=== PATIENT | female | born 1995 | race Two or more races ===

== ENCOUNTER 2020-03-26 17:57 | Emergency (ER) | payer MEDICAID, OTHER ==
[~2020-03-26] VITALS: Ht 157.5 cm; Wt 51.7 kg
[2020-03-26 19:01] LABS: ANION GAP 11 mmol/L (5-15); BLOOD UREA NITROGEN 9 mg/dL (7-18); CARBON DIOXIDE 27 MMOL/L (21-32); CHLORIDE 100 MMOL/L (98-107); CREATININE 0.6 MG/DL (0.55-1.30); POTASSIUM 3.9 MMOL/L (3.5-5.1); SODIUM 137 MMOL/L (136-145)
[2020-03-26 19:03] LABS: APPEARANCE,URINE CLEAR; BILIRUBIN, URINE NEGATIVE (NEGATIVE); COLOR,URINE YELLOW; GLUCOSE, URINE (UA) NEGATIVE (NEGATIVE); KETONES,URINE 3+ (NEGATIVE); LEUKOCYTE ESTERASE ,URINE 2+ (NEGATIVE); NITRITE,URINE NEGATIVE (NEGATIVE); PH,URINE 6.5 (4.5-8.0); PROTEIN,URINE NEGATIVE (NEGATIVE); UROBILINOGEN,URINE NORMAL MG/DL (0.0-1.0)
[2020-03-26 19:08] LABS: BASOPHILS % (AUTO) 0.7 % (0.0-2.0); EOSINOPHILS % (AUTO) 0.4 % (0.0-3.0); HEMATOCRIT 39.5 % (37.0-47.0); HEMOGLOBIN 13.3 G/DL (12.0-16.0); LYMPHOCYTES % (AUTO) 22.6 % (20.0-45.0); MEAN CORPUSCULAR VOLUME 92 FL (80-99); MONOCYTES % (AUTO) 9.7 % (1.0-10.0); NEUTROPHILS % (AUTO) 66.6 % (45.0-75.0); PLATELET COUNT 446 K/UL (150-450); RED CELL DISTRIBUTION WIDTH 11.6 % (11.6-14.8); WHITE BLOOD COUNT 11.5 K/UL (4.8-10.8)
[2020-03-26 19:13] LABS: ALANINE AMINOTRANSFERASE 29 U/L (12-78); ALBUMIN 4.8 G/DL (3.4-5.0); ALBUMIN/GLOBULIN RATIO 1.5 (1.0-2.7); ALKALINE PHOSPHATASE 48 U/L (46-116); ASPARTATE AMINO TRANSFERASE 31 U/L (15-37); BILIRUBIN,TOTAL 1.1 MG/DL (0.2-1.0)
[2020-03-26 19:16] LABS: BILIRUBIN,DIRECT 0.1 MG/DL (0.0-0.3)
--- NOTE | 2020-03-26 19:17 | Diagnostic Imaging Report ---
EXAM: US First Trimester , Transabdominal and Transvaginal CLINICAL HISTORY: PAIN TECHNIQUE: Real-time transabdominal and transvaginal obstetrical ultrasound of the maternal pelvis and a first trimester with image documentation. Transvaginal imaging was used for better evaluation of the fetus and adnexa. COMPARISON: No previous studies. FINDINGS: Gestation: Single early intrauterine gestational sac is noted corresponding to a gestational age of 6 weeks 1 day. No pole or yolk sac is detected at this early stage. Placenta/amniotic fluid: Cannot be adequately evaluated due to the early gestational age. Uterus/cervix: The cervix is closed. No myometrial mass. Ovaries: Flow to both ovaries is noted. The right ovary measures are 3.3 x 2 x 2.7 cm per Left ovary measures 2.8 x 1.3 x 2.3 centers. Flow of the ovaries is noted. Free fluid: No free fluid. IMPRESSION: 1. Single very early intrauterine gestation is noted corresponding to gestational age of 6 weeks 1 day. 2. No pole or yolk sac at this early stage. 3. Cervix is closed. 4. Flow to both ovaries noted. 5. Clinical correlation, correlation with laboratory values, and reimaging in 1 week are advised for further reassessment.
--- NOTE | 2020-03-26 19:21 | Diagnostic Imaging Report ---
EXAM: US Pelvis Transabdominal and Transvaginal, Complete and US Duplex Arterial/Venous of the Pelvis, Complete CLINICAL HISTORY: PAIN TECHNIQUE: Real-time complete transabdominal and transvaginal pelvic ultrasound with image documentation. Transvaginal imaging was used for better evaluation of the endometrium and adnexa. Real-time duplex ultrasound scan of the arterial and venous flow of the pelvis with color Doppler flow and spectral waveform analysis. COMPARISON: No previous study. FINDINGS: Uterus/cervix: The uterus measures 8.1 x 4.1 x 5.8 cm. Cervix is closed. Endometrial stripe measures approximately 1.9 cm in thickness. No myometrial mass. Right ovary: Right ovary measures 3.3 x 2 x 2.7 cm. Flow to both ovaries noted. No torsion. Left ovary: Left ovary measures 2.8 x 1.2 x 2.3 cm. Free fluid: No free fluid. Bladder: Unremarkable as visualized. Wall is normal thickness for degree of distention. Other findings: Single early intrauterine gestation is notochord spine to a gestational age of 6 weeks 1 day. No pole or yolk sac. IMPRESSION: 1. Single early intrauterine gestation is noted corresponding to a gestational age of 6 weeks 1 day. 2. No pole or yolk sac is detected. 3. Cervix is closed. 4. Clinical correlation, correlation with laboratory values, and reimaging in 1 week are advised for follow-up.
--- NOTE | 2020-03-26 19:30 | Emergency Room Report ---
History of Present Illness General Chief Complaint: Complications Source: Patient Present Illness HPI 24-year-old female who is G1, P0 and 6 weeks here complaining vaginal bleeding and now spotting with suprapubic pain. Denies diffuse abdominal pain, syncope, nausea vomiting diarrhea. Denies any heavy lifting or fall. Reports that she last saw her [employer] week ago. Has not yet had an ultrasound. Has been taking vitamins. Reports that she first started having diffuse amount of blood however it changed to spotting today. Has not taken medication for symptom relief. Denies any alcohol intake, tobacco smoke or drug use. Denies r ecent sexual discharge. Denies urinary frequency and urgency or dysuria. Allergies: Coded Allergies: No Known Allergies (Unverified , 03/26/20) COVID-19 Screening Contact w/high risk pt: No Experienced COVID-19 symptoms?: No COVID-19 Testing performed [employer]OM [employer] APPRENTICE: No Patient History Past Medical History: see triage record Past Surgical History: none Pertinent Family History: none Last Menstrual Period: February 12, 2020 Now: Yes : 1 Para: 0 Immunizations: UTD Reviewed Nursing Documentation: PMH: Agreed; PSxH: Agreed Nursing Documentation-PMH Past Medical History: No Stated History Review of Systems All Other Systems: negative except mentioned in HPI Physical Exam Vital Signs Date Time Temp Pulse Resp B/P (MAP) Pulse Ox O2 Delivery O2 Flow Rate FiO2 03/26/20 18:02 98.8 109 24 121/70 (87) 95 Sp02 EP Interpretation: reviewed, normal General Appearance: no apparent distress, alert, GCS 15, non-toxic Head: normocephalic, atraumatic Eyes: bilateral eye normal inspection, bilateral eye PERRL ENT: hearing grossly normal, normal pharynx, no angioedema, normal voice Neck: full range of motion, supple/symm/no masses Respiratory: chest non-tender, lungs clear, normal breath sounds, speaking full sentences Cardiovascular #1: regular rate, rhythm, no edema Gastrointestinal: normal bowel sounds, non tender, soft, non-distended, no guarding, no rebound Rectal: deferred Genitourinary: no CVA tenderness Musculoskeletal: back normal, no calf tenderness Neurologic: alert, motor strength/tone normal, oriented x3, sensory intact, responsive, speech normal Psychiatric: judgement/insight normal, memory normal, mood/affect normal, no suicidal/homicidal ideation Skin: no rash Lymphatic: no adenopathy Medical Decision Making PA Attestation ALL Diagnosis and treatment plan reviewed and discussed with my supervising physician Dr. Mcadams Diagnostic Impression: Primary Impression: Vaginal bleeding during Additional Impression: UTI (urinary tract infection) during ER Course 24-year-old female who is G1, P0 and 6 weeks here complaining vaginal bleeding and now spotting with suprapubic pain. Denies diffuse abdominal pain, syncope, nausea vomiting diarrhea. Denies any heavy lifting or fall. Reports that she last saw her [employer] week ago. Has not yet had an ultrasound. Has been taking vitamins. Reports that she first started having diffuse amount of blood however it changed to spotting today. Has not taken medication for symptom relief. Denies any alcohol intake, tobacco smoke or drug use. Denies recent sexual discharge. Denies urinary frequency and urgency or dysuria. Ddx considered but are not limited to: Ectopic , spontaneous , threatened , abdominal pain during , vaginal bleeding during , UTI during Vital signs: are WNL, pt. is afebrile H&PE are most consistent with: Vaginal bleeding during , UTI during ORDERS: CBC, CMP quantitative, OB ultrasound Keflex Upon discharge patient mentions to me that she was recently diagnosed with chlamydia however she did not want to tell anybody else until she realized that she should tell the provider that she recently received a treatment for chlamydia and is thinking that maybe the UTI secondary to that. Patient received 2 tabs of azithromycin 3 days ago and denies any vaginal discharge at this time. Patient also has her significant other on the phone and they were recommended that she should follow-up with [employer] in 24 to 48 hours. ED INTERVENTIONS: none DISCHARGE: At this time pt. is stable for d/c to home. Will provide printed patient care instructions, and any necessary prescriptions. Care plan and follow up instructions have been discussed with the patient prior to discharge. Patient take medication as directed, follow primary care provider, need to be seen by [employer] in 24 to 48 hours, if worsening symptoms return to the emergency room CT/MRI/US Diagnostic Results CT/MRI/US Diagnostic Results : Imaging Test Ordered: OB US Impression FINDINGS: Gestation: Single early intrauterine gestational sac is noted corresponding to a gestational age of 6 weeks 1 day. No pole or yolk sac is detected at this early stage. Placenta/amniotic fluid: Cannot be adequately evaluated due to the early gestational age. Uterus/cervix: The cervix is closed. No myometrial mass. Ovaries: Flow to both ovaries is noted. The right ovary measures are 3.3 x 2 x 2.7 cm per Left ovary measures 2.8 x 1.3 x 2.3 centers. Flow of the ovaries is noted. Free fluid: No free fluid. IMPRESSION: 1. Single very early intrauterine gestation is noted corresponding to g estational age of 6 weeks 1 day. 2. No pole or yolk sac at this early stage. 3. Cervix is closed. 4. Flow to both ovaries noted. 5. Clinical correlation, correlation with laboratory values, and reimaging in 1 week are advised for further reassessment. Last Vital Signs Date Time Temp Pulse Resp B/P (MAP) Pulse Ox O2 Delivery O2 Flow Rate FiO2 03/26/20 18:02 98.8 109 24 121/70 (87) 95 Disposition: HOME, SELF-CARE Condition: Stable Scripts Cephalexin* (KEFLEX*) 500 Mg Capsule 500 MG ORAL EVERY 12 HOURS for 7 Days, #14 CAP 0 Refills Prov: Colleen Cyr 03/26/20 Referrals: NOT CHOSEN IPA/,REFERRING (PCP) Patient Instructions: and Urinary Tract Infection, Vaginal Bleeding During , First Trimester, [id number] Additional Instructions: Take medication as directed, follow-up with your [employer] in 24 to 48 hours, if worsening symptoms return to the emergency room Colleen Cyr Mar 26, 2020 19:30
[2020-03-26] MEDS ORDERED: CEPHALEXIN500 MG ORAL (19:36)
[2020-03-26] MEDS ORDERED: Cephalexin 500mg cap ORAL ONE (19:45)
[2020-03-26 19:49] VITALS: BP 119/77
== END 2020-03-26 19:49 | disposition home or self-care (01) ==
LOC: EMR 18:32 → EDBD 18:32 → EMR 19:49
DX: O20.9 Hemorrhage in early pregnancy, unspecified (principal); O23.41 Unspecified infection of urinary tract in pregnancy, first trimester; Z3A.01 Less than 8 weeks gestation of pregnancy
CPT/HCPCS: 36415; 76801; 76817; 80053; 81003; 82248; 84702; 85025; 86850; 86900; 86901; Z7502; 99284